=== PATIENT | female | born 1985 | race Caucasian/White ===

== ENCOUNTER 2017-05-09 11:11 | Inpatient (IN) | payer MEDICAID ==
[~2017-05-09] VITALS: Ht 154.9 cm; Wt 76.5 kg
[2017-05-09] MEDS ORDERED: PREN1TAB17 PO (11:15)
--- NOTE | 2017-05-09 11:59 | TRIAGE ---
OB Triage Datetime Report Generated by CPN: 05/09/2017 11:59 Datetime: 05/09/2017 11:29 Category: Category II Datetime: 05/09/2017 11:25 Stage of : OB Triage Assessment Type: Triage Maternal Assessment Level of Consciousness: Fully Conscious DTR's/Clonus: DTRs 2+; No Clonus Headache: Denies Blurred Vision: No Respiratory Effort: Unlabored; Regular Rhythm; Equal Expansion Breath Sounds, Left: Clear and Equal Breath Sounds, Right: Clear and Equal Nausea/Vomiting: Denies RUQ Epigastric Pain: Denies Lower Extremities Edema: Bilateral Lower Extremities Degree: Pitting Upper Extremities Edema: None Facial Edema: None Temperature Route: Oral Fall Risk Assessment History of Falling: (0) No Secondary Diagnosis: (0) No Ambulatory Aid: (0) Bedrest/Nurse Assist IV Therapy: (0) No Gait: (0) Normal/Bedrest/Immobile Mental Status: (0) Oriented to Own Ability Fall Score: 0 Fall Risk Score Definition: No Risk: No action required Labor Evaluation Monitor Mode: External Heart Rate FHR Baseline Rate: 145 Monitor Mode: External US Variability: Moderate 6-25 bpm Accelerations: 15X15 Decelerations: None Category: Category I Pain Assessment Pain Scale: 0 Pain Presence: None/Denies Pain Type: N/A Datetime: 05/09/2017 11:14 EGA: 34.5 Datetime: 05/09/2017 11:09 Time of Arrival: 05/09/2017 11:09 Arrived By: Ambulatory Arrived From: Office Chief Complaint: SENT FROM [facility] B/P Movement: Present Rupture of Membranes: Denies Vaginal Bleeding: None Vaginal Discharge: Denies Recent Sexual Intercouse: Denies Abdominal Trauma: Not Applicable Patient Complaints: None Initial Plan: EFMX2, STANDING, SITTING, AND SEMIFOWLERS B/P TAKEN CALL
[2017-05-09] MEDS ORDERED: MAGNESIUM SULFATE 4 GM/100 ML 100 ML IV ONE (12:00)
[2017-05-09] MEDS: BETAMET NA PHOS/AC(6 MG/ML) 5ML INJ IM SCH (12:06)
[2017-05-09 12:38] LABS: ABNORMAL IP MESSAGE 1; BASOPHILS % 0.4 % (0.0-2.0); EOSINOPHILS # 0.2 10^3/ul (0.0-0.5); EOSINOPHILS % 1.4 % (0.0-7.0); HEMATOCRIT 36.7 % (37.0-47.0); HEMOGLOBIN 12.1 g/dl (12.0-16.0); LYMPHOCYTES # 2.8 10^3/ul (0.8-2.9); LYMPHOCYTES % 25.5 % (15.0-51.0); MEAN CORPUSCULAR HEMOGLOBIN 30.3 pg (29.0-33.0); MONOCYTE # 0.7 10^3/ul (0.3-0.9); MONOCYTES % 6.1 % (0.0-11.0); NEUTROPHIL # 7.2 10^3/ul (1.6-7.5); PLATELET COUNT 135 10^3/UL (140-415); RED BLOOD COUNT 3.99 10^6/ul (4.20-5.40); RED CELL DISTRIBUTION WIDTH 13.9 % (11.5-14.5); WHITE BLOOD COUNT 10.8 10^3/ul (4.8-10.8)
[2017-05-09 12:39] LABS: POSITIVE DIFF @See below
[2017-05-09] MEDS: LACTATED RINGER'S 1,000 ML IV SCH ×2 (12:43→19:36)
[2017-05-09 12:50] LABS: INR 0.86; PARTIAL THROMBOPLASTIN TIME 25.5 Sec (25.0-35.0); PROTIME 11.7 Sec (12.2-14.2); PT RATIO 0.9
--- NOTE | 2017-05-09 12:50 | RADRPT ---
PROCEDURE: US OB. CLINICAL INDICATION: Size and dates , preeclampsia TECHNIQUE: Multiple sonographic images of the pelvis and gravid uterus were obtained. The images were reviewed on a PACS workstation. COMPARISON: No prior studies are available for comparison. FINDINGS: There is a single viable intrauterine gestation. Cardiac activity is present with 142 beats per min [place]. There is a vertex presentation. The placenta is fundal. There is no evidence for an abruption or placenta previa. There is a normal amount of amniotic fluid with an DAVID = 9.7 cm. Measurements were made in order to determine age. The results are as follows: BPD =8.5 cm HC =29.5 cm AC =28.5 cm FL =6.3 cm Estimated gestational age of approximately 33 weeks and 0 days based on ultrasound measurements. Clinical age: 34 weeks and 5 days. The estimated date of delivery is 06/27/17, based on ultrasound measurements. The EFW = 2012 g, 5.2%, based on LMP age. RPTAT: AA IMPRESSION: Single viable intrauterine gestation of approximately 33 weeks and 0 days based on ultrasound measu rements. .Dominick Tellez MD, MD Date Time Electronically viewed and signed by .Dominick Tellez MD, on 05/09/2017 12:49 .S/
--- NOTE | 2017-05-09 12:51 | RADRPT ---
PROCEDURE: US OB biophysical profile. CLINICAL INDICATION: decreased movements, preeclampsia TECHNIQUE: Multiple sonographic images of the pelvis were obtained. The images were reviewed on a PACS workstation. COMPARISON: No prior studies are available for comparison. FINDINGS: There is a single viable intrauterine gestation. Cardiac activity is present with 134 beats per min [place]. There is a vertex presentation. The placenta is fundal. There is a hypoechoic area within the placenta, suspicious for a placental javier. There is a normal amount of amniotic fluid with an DAVID = 9.7 cm. Biophysical profile: movement 2/2 tone 2/2. breathing 2/2 DAVID 2/2 Total 05/22 RPTAT: AA . IMPRESSION: Normal biophysical profile. . .Dominick Tellez MD, MD Date Time Electronically viewed and signed by .Dominick Tellez MD, MD on 05/09/2017 12:51 .S/
[2017-05-09 12:55] LABS: ALBUMIN/GLOBULIN RATIO 0.85; BILIRUBIN,INDIRECT 0.1 mg/dl (0-1.1); BILIRUBIN,TOTAL 0.1 mg/dl (0.2-1.3); CALCIUM 8.9 mg/dl (8.4-10.2); CREATININE 0.58 mg/dl (0.44-1.00); POTASSIUM 4.2 mmol/L (3.5-5.1); TOTAL PROTEIN 6.5 g/dl (6.1-8.1); URIC ACID 6.4 mg/dl (3.1-7.9)
[2017-05-09 13:12] LABS: ADD UMIC YES; UR ASCORBIC ACID NEGATIVE (NEGATIVE); UR BILIRUBIN (Dip) NEGATIVE (NEGATIVE); UR BLOOD (Dip) NEGATIVE (NEGATIVE); UR CLARITY CLOUDY (CLEAR); UR COLOR YELLOW (YELLOW); UR GLUCOSE (Dip) NEGATIVE (NEGATIVE); UR KETONES (Dip) NEGATIVE (NEGATIVE); UR LEUKOCYTE ESTERASE (Dip) 2+ Leu/ul (NEGATIVE); UR MUCUS FEW /HPF (NONE SEEN); UR NITRITE (Dip) NEGATIVE (NEGATIVE); UR RBC 5 /HPF (0-5); UR SPECIFIC GRAVITY (Dip) 1.023 (1.003-1.030); UR SQUAMOUS EPITHELIAL CELL MANY /HPF (FEW); UR TOTAL PROTEIN (Dip) 3+ mg/dl (NEGATIVE); UR UROBILINOGEN (Dip) NEGATIVE (NEGATIVE)
[2017-05-09] MEDS: MAGNESIUM SULFATE 20 GM/500 ML 500 ML IV SCH ×2 (13:31→23:25)
[2017-05-09 13:39] LABS: BARBITURATES NEGATIVE (NEGATIVE); BENZODIAZEPINES NEGATIVE (NEGATIVE); CANNABINOIDS NEGATIVE (NEGATIVE); COCAINE NEGATIVE (NEGATIVE); OPIATES NEGATIVE (NEGATIVE)
[2017-05-09] MEDS ORDERED: LABETALOL HCL 20MG INJ IV ONE (14:45)
[2017-05-09 15:24] VITALS: Ht 154.9 cm; Wt 76.5 kg
[2017-05-10] MEDS: LACTATED RINGER'S 1,000 ML IV SCH ×2 (00:24→13:47)
[2017-05-10 05:40] LABS: ABNORMAL IP MESSAGE 1; BASOPHILS % 0.1 % (0.0-2.0); HEMOGLOBIN 12.2 g/dl (12.0-16.0); LYMPHOCYTES # 1.9 10^3/ul (0.8-2.9); LYMPHOCYTES % 13.9 % (15.0-51.0); MEAN CORPUSCULAR HEMOGLOBIN 30.6 pg (29.0-33.0); MEAN CORPUSCULAR VOLUME 92.7 fl (82.0-101.0); MONOCYTE # 0.8 10^3/ul (0.3-0.9); MONOCYTES % 5.8 % (0.0-11.0); NEUTROPHIL # 10.8 10^3/ul (1.6-7.5); NEUTROPHILS % 78.9 % (39.0-77.0); PLATELET COUNT 145 10^3/UL (140-415); RED BLOOD COUNT 3.99 10^6/ul (4.20-5.40); RED CELL DISTRIBUTION WIDTH 13.8 % (11.5-14.5); WHITE BLOOD COUNT 13.8 10^3/ul (4.8-10.8)
[2017-05-10 05:48] LABS: POSITIVE DIFF @See below
[2017-05-10 05:54] LABS: INR 0.87; PROTIME 11.8 Sec (12.2-14.2); PT RATIO 0.9
[2017-05-10 05:55] LABS: PARTIAL THROMBOPLASTIN TIME 23.5 Sec (25.0-35.0)
[2017-05-10] MEDS: LABETALOL HCL 20MG INJ IV PRN ×3 (06:00→19:51)
[2017-05-10 06:29] LABS: ALBUMIN 3.3 g/dl (3.3-4.9); ALBUMIN/GLOBULIN RATIO 0.97; BILIRUBIN,INDIRECT 0.1 mg/dl (0-1.1); BILIRUBIN,TOTAL 0.1 mg/dl (0.2-1.3); CALCIUM 7.6 mg/dl (8.4-10.2); CREATININE 0.65 mg/dl (0.44-1.00); POTASSIUM 4.3 mmol/L (3.5-5.1); TOTAL PROTEIN 6.7 g/dl (6.1-8.1); URIC ACID 7.5 mg/dl (3.1-7.9)
--- NOTE | 2017-05-10 07:44 | HP ---
DATE OF ADMISSION: 05/09/2017 HISTORY OF PRESENT ILLNESS: A 31-year-old female, 2, para 1, last menstrual period 09/07/2016, estimated date of delivery 06/14/2017 who was seen in clinic and noted to have elevated blood pressure. The patient was referred for admission. PAST MEDICAL HISTORY: Unremarkable. ALLERGIES: NO KNOWN ALLERGIES. FAMILY HISTORY: Noncontributory. COURSE: Significant for noncompliance with visits. The patient states she could not make it for her visits due to her work. The patient had only 2 visits prior to today's visit. PHYSICAL EXAMINATION: VITAL SIGNS: The patient is afebrile. Blood pressure initially in the 160s to 180s and diastolic in the 100s. HEENT: Within normal limits. CHEST: Within normal limits. ABDOMEN: Soft, nontender, and gravid. EXTREMITIES: Examination of lower extremities revealed bilateral edema. NEUROLOGIC: Within normal limits. LABORATORY DATA: Workup included a urinalysis which revealed 3- plus protein. IMPRESSION: at 34-plus weeks by last menstrual period, 33 weeks by today's ultrasound. Rule out preeclampsia with severe features. PLAN: 1. Admit. 2. Intravenous magnesium sulfate for seizure prophylaxis. 3. A 24-hour urine collection. 4. induced hypertension panel. 5. Continuous monitoring and perinatology consult. Dictated By: Marques Geller MD /ap/magda /Document#: [id number] SONJA
[2017-05-10] MEDS: MAGNESIUM SULFATE 20 GM/500 ML 500 ML IV SCH ×2 (08:37→18:41)
[2017-05-10] MEDS: PRENATAL VITAMIN PO SCH (09:39)
--- NOTE | 2017-05-10 09:52 | RADRPT ---
PROCEDURE: US OB biophysical profile. CLINICAL INDICATION: decreased movements, decelerations TECHNIQUE: Multiple sonographic images of the pelvis were obtained. The images were reviewed on a PACS workstation. COMPARISON: 05/09/2017 FINDINGS: There is a single viable intrauterine gestation. Cardiac activity is present with 137 beats per min [place]. There is a vertex presentation. The placenta is fundal. There is no evidence of placental abruption. There is a normal amount of amniotic fluid with an DAVID = 8.4 cm. Biophysical profile: movement 2/2 tone 2/2. breathing 2/2 DAVID 2/2 Total 05/22 RPTAT: AA . IMPRESSION: Normal biophysical profile. . .Dominick Tellez MD, MD Date Time Electronically viewed and signed by .Dominick Tellez MD, MD on 05/10/2017 09:52 .S/
[2017-05-10] MEDS: BETAMET NA PHOS/AC(6 MG/ML) 5ML INJ IM SCH (12:04)
--- NOTE | 2017-05-10 13:06 | QN ---
Documentation Comment I was asked to do a consult for Sheron Dickey who is an 31-year-old 1 para 0 female admitted to [facility] on 2016 with preeclampsia at approximately 34 and 6/7 weeks today mom is currently receiving betamethasone as well as magnesium sulfate. Estimated weight is noted to be greater than 2000 g I spoke with mom at length regarding complications associated with delivery at this Gestational age. Discussed risk of need for NICU admission at greater than 35 weeks if the infant has respiratory distress, hypoglycemia, temperature instability, as well as poor nipple feeding. Mom verbalized understanding of our discussion. All questions answered at this point TRA SABILLON MD May 10, 2017 13:05
--- NOTE | 2017-05-10 14:40 | PERINOTE ---
Date/Time of Note Date/Time of Note DATE: 05/10/17 TIME: 14:29 Assessment/Recommendations Other Assessments Late IUP Apparent preeclampsia with severe-range BPs and heart rate decelerations that may be increasing in frequency and duration. Recommendations: Given the findings, I would favor delivery now, as I feel that the benefit of continuing the for another day does not justify the risk. OB Subjective Free Text/Dictaton Patient referred to [facility] with new onset of hypertension and proteinuria. Over the course of the day fetus has had multiple variable decelerations, the largest lasting 6 minutes with a aida of 50bpm HD# 2 IUP @ [id number] Current Medications Current Medications Lactated Ringer's 1,000 ml @ 75 mls/hr [id number] IV Last administered on 13:47; Admin Dose 75 MLS/HR; Start 05/09/17 at 11:36 Magnesium Sulfate (Magnesium Sulfate 20 Gm/500 ml) 500 ml @ 50 mls/hr Q10H IV Last administered on 05/10/17 08:37; Admin Dose 50 MLS/HR; Start 05/09/17 at 11 :36 Prenat Multivit/ [place]/Iron/Folic Ac () 1 tab DAILY PO Last administered on 05/10/17 09:39; Admin Dose 1 TAB; Start 05/10/17 at 09:00 Labetalol HCl (Labetalol) 20 mg Q20M PRN IV ELEVATED BLOOD PRESSURE Last administered on 05/10/17 09:06; Admin Dose 20 MG; Start 05/10/17 at 00:00 Past Medical History Medical History: no pertinent history Surgical History: no surgical history 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 Para: 1 : 2 LMP (Females 10-50): Family History Significant Family History: no pertinent family hx Social History Smoker: non-smoker Alcohol: none Drugs: none OB Admission Exam Physical Exam Vitals: BP at this time 165/99 Abdomen: WNL Heart Rate: 130's Accelerations: Accelerations Present Decelerations: Variable Decelerations Varibility: Minimum Contractions on Admission: None Last 72 hours Lab Results CBC & BMP 05/09/17 12:12 05/10/17 05:17 Liver Function Test 05/09/17 12:12 05/10/17 05:17 Alanine Aminotransferase (ALT/SGPT) 28 23 Albumin 3.0 L 3.3 Alkaline Phosphatase 160 H 187 H Aspartate Amino Transf (AST/SGOT) 15 29 Direct Bilirubin 0.00 0.00 Total Protein 6.5 6.7 Magnesium Level Test 05/09/17 12:12 05/09/17 18:30 05/10/17 00:25 05/10/17 05:17 Magnesium Level 1.6 L 5.0 #H 5.6 *H 5.6 *H Test 05/10/17 11:57 Magnesium Level 5.6 *H TONY PACHECO MD May 10, 2017 14:39
[2017-05-10 15:50] LABS: SCRET 0.65 mg/dl (0.44-1.00)
[2017-05-10] MEDS ORDERED: CEFAZOLIN 2 GM/50 ML (PMX) 50 ML IVPB ONE (16:00)
--- NOTE | 2017-05-10 19:51 | QN ---
Documentation Comment Patient with preeclampsia with severe features. heart decelerations have been noted. Patient was evaluated by Dr Fritz ([facility]) who recommends to deliver the patient by at this time. Patient and father of the baby at bedside are counseled extensively through print line tailer about the potential complications to the mother and the baby with continued , including but not limited to demise, permanent neurologic to the baby such as mental retardation and permanent handicapped, maternal , maternal epilepsy, materna stroke, maternal permanent neurologic damage. Patient and father of the baby stated they understood and decline to have delivery at this time and they would like to wait and continue with the . JANICE CARMONA MD May 10, 2017 19:50
[2017-05-10] MEDS ORDERED: DEXTROSE 5%-LR 1,000 ML IV SCH (20:00)
[2017-05-11] MEDS: LABETALOL 200 MG TAB PO SCH ×3 (00:26→17:04)
[2017-05-11] MEDS: MAGNESIUM SULFATE 20 GM/500 ML 500 ML IV SCH ×2 (03:57→14:09)
[2017-05-11] MEDS: LACTATED RINGER'S 1,000 ML IV SCH (06:54)
[2017-05-11 07:21] LABS: ABNORMAL IP MESSAGE 1; BASOPHILS % 0.2 % (0.0-2.0); HEMATOCRIT 36.9 % (37.0-47.0); HEMOGLOBIN 12.2 g/dl (12.0-16.0); LYMPHOCYTES # 2.1 10^3/ul (0.8-2.9); LYMPHOCYTES % 13.4 % (15.0-51.0); MEAN CORPUSCULAR HEMOGLOBIN 31.4 pg (29.0-33.0); MEAN CORPUSCULAR HGB CONC 33.1 g/dl (32.0-37.0); MEAN CORPUSCULAR VOLUME 94.9 fl (82.0-101.0); MONOCYTES % 6.6 % (0.0-11.0); NEUTROPHIL # 11.6 10^3/ul (1.6-7.5); NEUTROPHILS % 75.5 % (39.0-77.0); NUCLEATED RED BLOOD CELLS% 0.1 /100WBC (0.0-0.0); PLATELET COUNT 129 10^3/UL (140-415); RED BLOOD COUNT 3.89 10^6/ul (4.20-5.40); RED CELL DISTRIBUTION WIDTH 14.4 % (11.5-14.5); WHITE BLOOD COUNT 15.3 10^3/ul (4.8-10.8)
[2017-05-11 07:25] LABS: POSITIVE DIFF @See below
[2017-05-11 07:46] LABS: INR 0.88; PARTIAL THROMBOPLASTIN TIME 24.2 Sec (25.0-35.0); PROTIME 11.9 Sec (12.2-14.2); PT RATIO 0.9
[2017-05-11 07:52] LABS: FIBRIN SPLIT PRODUCT <10 ug/ml (<10)
--- NOTE | 2017-05-11 08:11 | RADRPT ---
PROCEDURE: US OB biophysical profile. CLINICAL INDICATION: decreased movements, preeclampsia TECHNIQUE: Multiple sonographic images of the pelvis were obtained. The images were reviewed on a PACS workstation. COMPARISON: 05/10/2017 FINDINGS: There is a single viable intrauterine gestation. Cardiac activity is present with 139 beats per min [place]. There is a vertex presentation. The placenta is fundal. There is no evidence of placental abruption. There is a normal amount of amniotic fluid with an DAVID = 10.5 cm. There is a possible nuchal cord noted. Biophysical profile: movement 2/2 tone 2/2. breathing 2/2 DAVID 2/2 Total 05/22 RPTAT: AA . IMPRESSION: Normal biophysical profile. Possible nuchal cord. . .Dominick Tellez MD, Date Time Electronically viewed and signed by .Dominick Tellez MD, on 05/11/2017 08:10 .S/
[2017-05-11 08:54] LABS: ALBUMIN 3.3 g/dl (3.3-4.9); ALBUMIN/GLOBULIN RATIO 1.03; BILIRUBIN,INDIRECT 0.1 mg/dl (0-1.1); BILIRUBIN,TOTAL 0.1 mg/dl (0.2-1.3); CALCIUM 6.8 mg/dl (8.4-10.2); CREATININE 0.64 mg/dl (0.44-1.00); POTASSIUM 4.4 mmol/L (3.5-5.1); TOTAL PROTEIN 6.5 g/dl (6.1-8.1); URIC ACID 6.7 mg/dl (3.1-7.9)
[2017-05-11 09:06] LABS: UR BILIRUBIN (Dip) NEGATIVE (NEGATIVE); UR BLOOD (Dip) NEGATIVE (NEGATIVE); UR CLARITY SLIGHTLY CLOUDY (CLEAR); UR COLOR YELLOW (YELLOW); UR GLUCOSE (Dip) NEGATIVE (NEGATIVE); UR KETONES (Dip) NEGATIVE (NEGATIVE); UR SPECIFIC GRAVITY (Dip) 1.012 (1.003-1.030); UR TOTAL PROTEIN (Dip) 2+ mg/dl (NEGATIVE)
[2017-05-11] MEDS: PRENATAL VITAMIN PO SCH (09:06)
[2017-05-11 09:07] LABS: ADD UMIC YES; UR ASCORBIC ACID NEGATIVE (NEGATIVE); UR BACTERIA FEW /HPF (NONE SEEN); UR LEUKOCYTE ESTERASE (Dip) 1+ Leu/ul (NEGATIVE); UR MUCUS FEW /HPF (NONE SEEN); UR NITRITE (Dip) NEGATIVE (NEGATIVE); UR RBC 1 /HPF (0-5); UR SQUAMOUS EPITHELIAL CELL FEW /HPF (FEW); UR UROBILINOGEN (Dip) NEGATIVE (NEGATIVE)
--- NOTE | 2017-05-11 14:15 | PERINOTE ---
Date/Time of Note Date/Time of Note DATE: 05/11/17 TIME: 14:15 OB Subjective Free Text/Dictaton Second form added in error Sarah Pacheco OB Admission Exam Last 72 hours Lab Results CBC & BMP 05/09/17 12:12 05/10/17 05:17 05/10/17 11:57 05/11/17 06:23 Liver Function Test 05/09/17 12:12 05/10/17 05:17 05/11/17 06:23 Alanine Aminotransferase (ALT/SGPT) 28 23 25 Albumin 3.0 L 3.3 3.3 Alkaline Phosphatase 160 H 187 H 195 H Aspartate Amino Transf (AST/SGOT) 15 29 18 Direct Bilirubin 0.00 0.00 0.00 Total Protein 6.5 6.7 6.5 Magnesium Level Test 05/09/17 12:12 05/09/17 18:30 05/10/17 00:25 05/10/17 05:17 Magnesium Level 1.6 L 5.0 #H 5.6 *H 5.6 *H Test 05/10/17 11:57 05/10/17 18:05 05/11/17 00:36 05/11/17 06:23 Magnesium Level 5.6 *H 5.5 *H 5.9 *H 6.2 *H Test 05/11/17 12:03 Magnesium Level 6.3 *H SARAH PACHECO MD May 11, 2017 14:15 05/11/17 12:03 Magnesium Level 6.3 *H SARAH PACHECO MD May 11, 2017 14:15
--- NOTE | 2017-05-11 14:19 | PERINOTE ---
Date/Time of Note Date/Time of Note DATE: 05/11/17 TIME: 14:16 Assessment/Recommendations Other Assessments Severe preeclampsia heart rate decelerations Patient now willing to undergo delivery Recommendations: Would deliver this patient OB Subjective Free Text/Dictaton Patient with severe preeclampsia who has declined delivery HD# 3 IUP @ 35 weeks Complaints/Overnight events Patient now states that she iw willing to have her delivery tonight. Fetus continues to have prolonged variable decelerations at irregular intervals Current Medications Current Medications Lactated Ringer's 1,000 ml @ 75 mls/hr [id number] IV Last administered on 06:54; Admin Dose 75 MLS/HR; Start 05/09/17 at 11:36 Magnesium Sulfate (Magnesium Sulfate 20 Gm/500 ml) 500 ml @ 50 mls/hr Q10H IV Last administered on 05/11/17 14:09; Admin Dose 50 MLS/HR; Start 05/09/17 at 11 :36 Prenat Multivit/ [place]/Iron/Folic Ac () 1 tab DAILY PO Last administered on 05/11/17 09:06; Admin Dose 1 TAB; Start 05/10/17 at 09:00 Labetalol HCl (Labetalol) 20 mg Q20M PRN IV ELEVATED BLOOD PRESSURE Last administered on 05/10/17 19:51; Admin Dose 20 MG; Start 05/10/17 at 00:00 Labetalol HCl 200 mg 200 mg Q8 PO Last administered on 05/11/17 06:27; Admin Dose 200 MG; Start 05/11/17 at 00:00 Dextrose/Lactated Ringer's (D5-Lr) 1,000 ml @ 75 mls/hr [id number] IV Last administered on 05/10/17 20:07; Admin Dose 75 MLS/HR; Start 05/10/17 at 20:00 OB Admission Exam Physical Exam Vitals: BP: 158/84 Max BP 24 hours 172/102 Abdomen: WNL Heart Rate: 130's Accelerations: Accelerations Present Decelerations: Prolonged Decelerations Varibility: Minimum Contractions on Admission: None Last 72 hours Lab Results CBC & BMP 05/09/17 12:12 05/10/17 05:17 05/10/17 11:57 05/11/17 06:23 Liver Function Test 05/09/17 12:12 05/10/17 05:17 05/11/17 06:23 Alanine Aminotransferase (ALT/SGPT) 28 23 25 Albumin 3.0 L 3.3 3.3 Alkaline Phosphatase 160 H 187 H 195 H Aspartate Amino Transf (AST/SGOT) 15 29 18 Direct Bilirubin 0.00 0.00 0.00 Total Protein 6.5 6.7 6.5 Magnesium Level Test 05/09/17 12:12 05/09/17 18:30 05/10/17 00:25 05/10/17 05:17 Magnesium Level 1.6 L 5.0 #H 5.6 *H 5.6 *H Test 05/10/17 11:57 05/10/17 18:05 05/11/17 00:36 05/11/17 06:23 Magnesium Level 5.6 *H 5.5 *H 5.9 *H 6.2 *H Test 05/11/17 12:03 Magnesium Level 6.3 *H Copies To: CC: JANICE CARMONA MD, MARIE H MD May 11, 2017 14:19
== END 2017-05-11 19:10 | disposition left against medical advice (07) | DRG 774 ==
LOC: OBT 11:11 → L-D 11:12 → OBT 11:45 → L-D 11:50
PROVIDERS: ADMIT Obstetrics & Gynecology; ATTEND Obstetrics & Gynecology
PROC: 4A1HX4Z Monitoring of Products of Conception, Cardiac Electrical Activity, External Approach (ICD-10-PCS; principal; 2017-05-09)
DX: O14.13 Severe pre-eclampsia, third trimester (principal); Z91.19 Patient's noncompliance with other medical treatment and regimen; Z3A.34 34 weeks gestation of pregnancy; Z37.0 Single live birth
CPT/HCPCS: 76815; 76818; 80053; 80307; 81001; 82565; 82575; 83735; 84156; 84560; 85025; 85362; 85384; 85610; 85730; 87340; G0463; J0690; J0702; J3475; J7120; J7121